=== PATIENT | female | born 1945 | race Caucasian/White ===

== ENCOUNTER 2016-03-02 10:05 | Emergency (ER) | payer MEDICARE, MEDICAID ==
[~2016-03-02] VITALS: Ht 162.6 cm; Wt 75.5 kg
[~2016-03-02 10:05] MED LIST: ALEVE220 MG PO; ATORVASTATIN CA40 MG PO; BEXTRA PO; FLEXERIL10 MG PO; HYDRODIURIL25 MG PO; LEVOFLOXACIN500 MG PO; LIPITOR 10MG10 MG PO; LOPRESSOR 550 MG/TAB PO; LOPRESSOR100 MG PO; LOSARTAN POTASS50 MG PO; MECLIZINE25 MG PO; METFORMIN850 MG PO; NITROGLYCERIN0.4 MG SL; NORCO 325 MG-51 TAB PO; OMEPRAZOLE D/R20 MG PO; PAXIL20 MG PO; PREVACID 30MG30 M1 PO; ST. JOSEPH81 M2 PO; SULFAMETH/TRIME1 TA1 PO; ZESTRIL20 MG PO
[2016-03-02] MEDS ORDERED: LIP PO (12:04)
[2016-03-02] MEDS ORDERED: CLOPIDOGREL PO (12:05)
[2016-03-02] MEDS ORDERED: BENADRYL PO (12:05)
[2016-03-02] MEDS ORDERED: HYDROCHLOROTHIA50 M1 PO (12:06)
[2016-03-02] MEDS ORDERED: LOTRISONE 0.05%1 CRE TOP (12:06)
[2016-03-02] MEDS ORDERED: METFOMIN HYDRO850 MG PO (12:07)
[2016-03-02] MEDS ORDERED: ASPIRIN 32325 MG/TAB PO (12:08)
[2016-03-02] MEDS ORDERED: FLEXERIL 1010 MG/TAB PO (12:31)
[2016-03-02] MEDS ORDERED: ANTIVERT PO (12:31)
[2016-03-02 12:42] VITALS: BP 135/71
== END 2016-03-02 12:43 | disposition home or self-care (01) ==
LOC: ED 10:05
DX: R42 Dizziness and giddiness (principal); M54.5 Low back pain; G89.29 Other chronic pain; E87.6 Hypokalemia
CPT/HCPCS: J7030

== ENCOUNTER → 2016-04-29 | Outpatient (CLI) | payer MEDICARE, MEDICAID ==
[~2016-04-29] MED LIST changes: +ANTIVERT PO; +ASPIRIN 32325 MG/TAB PO; +BENADRYL PO; +CLOPIDOGREL PO; +FLEXERIL 1010 MG/TAB PO; +HYDROCHLOROTHIA50 M1 PO; +LIP PO; +LOTRISONE 0.05%1 CRE TOP; +METFOMIN HYDRO850 MG PO
== END ==
LOC: RAD 09:07
DX: M25.511 Pain in right shoulder (principal); S46.811A Strain of other muscles, fascia and tendons at shoulder and upper arm level, right arm, initial encounter

== ENCOUNTER → 2016-09-02 | Outpatient (CLI) | payer MEDICARE, MEDICAID | LOC: LAB 10:49 | DX: E11.9 Type 2 diabetes mellitus without complications (principal); I10 Essential (primary) hypertension; M79.7 Fibromyalgia; I21.3 ST elevation (STEMI) myocardial infarction of unspecified site; R10.9 Unspecified abdominal pain ==

== ENCOUNTER → 2016-09-04 | Outpatient (CLI) | payer MEDICARE, MEDICAID | LOC: RAD 09:30 | DX: R94.8 Abnormal results of function studies of other organs and systems (principal); R10.9 Unspecified abdominal pain; N26.1 Atrophy of kidney (terminal); I70.0 Atherosclerosis of aorta; I77.811 Abdominal aortic ectasia; K44.9 Diaphragmatic hernia without obstruction or gangrene; K56.41 Fecal impaction ==

== ENCOUNTER → 2016-10-15 | Outpatient (CLI) | payer MEDICARE, MEDICAID | LOC: LAB 14:30 | DX: I70.213 Atherosclerosis of native arteries of extremities with intermittent claudication, bilateral legs (principal) ==

== ENCOUNTER → 2016-11-13 | Outpatient (CLI) | payer MEDICARE, MEDICAID | LOC: LAB 09:38 | DX: R53.83 Other fatigue (principal) ==

== ENCOUNTER → 2017-03-05 | Outpatient (CLI) | payer MEDICARE, MEDICAID | LOC: RAD 08:50 | DX: R10.84 Generalized abdominal pain (principal); Z90.49 Acquired absence of other specified parts of digestive tract; K76.0 Fatty (change of) liver, not elsewhere classified; N27.0 Small kidney, unilateral ==

== ENCOUNTER 2017-09-28 22:54 | Emergency (ER) | payer MEDICARE, MEDICAID ==
[~2017-09-28 22:54] MED LIST changes: -LOPRESSOR100 MG PO; +METOPROLOL TAR100 M1 PO
[2017-09-28] MEDS ORDERED: CATAPRES0.2 M1 PO (23:13)
[2017-09-28 23:37] LABS: HEMOGLOBIN 14.5 g/dL (12.5-16.0); MEAN CELL VOLUME 84 fl (78-100); MEAN CORPUSCULAR HEMOGLOBIN 29 pg (27-31); MEAN CORPUSCULAR HGB CONC 35 g/dL (33-37); MEAN PLATELET VOLUME 9.4 fl (7.4-10.4); PLATELET COUNT 260 K/mm3 (130-400); RED BLOOD COUNT 5.01 M/mm3 (4.10-5.30); WHITE BLOOD COUNT 5.1 K/mm3 (4.8-10.8)
[2017-09-28 23:50] LABS: ALBUMIN 3.9 g/dL (3.5-5.0); BUN/CREATININE RATIO 16.7 (6.0-26.0); POTASSIUM 3.9 mmol/L (3.6-5.0); TOTAL BILIRUBIN 0.6 mg/dL (0.2-1.3)
[2017-09-28 23:51] LABS: LYMPHOCYTE 17 % (20-51); MONOCYTE 11 % (3-10); NEUTROPHILS 65 % (42-75); OVALOCYTES 1+
[2017-09-29 09:02] VITALS: BP 186/78
== END 2017-09-29 09:16 | disposition home or self-care (01) ==
LOC: ED 22:54
PROVIDERS: Physician Assistant
DX: I16.0 Hypertensive urgency (principal); G43.909 Migraine, unspecified, not intractable, without status migrainosus; E11.9 Type 2 diabetes mellitus without complications; I25.2 Old myocardial infarction; I25.10 Atherosclerotic heart disease of native coronary artery without angina pectoris; M06.9 Rheumatoid arthritis, unspecified; Z79.02 Long term (current) use of antithrombotics/antiplatelets; Z79.82 Long term (current) use of aspirin; Z79.899 Other long term (current) drug therapy; F17.210 Nicotine dependence, cigarettes, uncomplicated
CPT/HCPCS: J1200; J1885; J2405; J3010

== ENCOUNTER 2017-10-02 14:04 | Emergency (ER) | payer MEDICARE, MEDICAID ==
[~2017-10-02] VITALS: Ht 162.6 cm; Wt 76.8 kg
[~2017-10-02 14:04] MED LIST changes: +CATAPRES0.2 M1 PO
[2017-10-02 14:44] LABS: HEMATOCRIT 40.5 % (37.0-47.0); MEAN CELL VOLUME 84 fl (78-100); MEAN CORPUSCULAR HEMOGLOBIN 29 pg (27-31); MEAN CORPUSCULAR HGB CONC 35 g/dL (33-37); MEAN PLATELET VOLUME 9.4 fl (7.4-10.4); PLATELET COUNT 298 K/mm3 (130-400); RED CELL DISTRIBUTION WIDTH 13.3 % (11.5-14.5)
[2017-10-02 14:55] LABS: BUN/CREATININE RATIO 13.5 (6.0-26.0); CALCIUM 9.5 mg/dL (8.4-10.2); POTASSIUM 4.6 mmol/L (3.6-5.0); TOTAL PROTEIN 6.5 g/dL (6.3-8.2)
[2017-10-02 15:08] LABS: TROPONIN-I < 0.03 ng/mL (0.00-0.06)
[2017-10-02 15:10] LABS: LYMPHOCYTE 25 % (20-51); MONOCYTE 12 % (3-10); NEUTROPHILS 57 % (42-75)
[2017-10-02] MEDS ORDERED: LOPRESSOR 225 MG/TAB PO (18:48)
[2017-10-02 18:54] LABS: BUN/CREATININE RATIO 13.3 (6.0-26.0); CALCIUM 8.3 mg/dL (8.4-10.2)
[2017-10-02 19:01] LABS: URINE APPEARANCE CLEAR; URINE BILIRUBIN NEGATIVE (NEGATIVE); URINE BLOOD NEGATIVE (NEGATIVE); URINE COLOR YELLOW; URINE GLUCOSE NEGATIVE (NEGATIVE); URINE KETONE NEGATIVE (NEGATIVE); URINE LEUKOCYTE ESTERASE NEGATIVE (NEGATIVE); URINE NITRATE NEGATIVE (NEGATIVE); URINE PROTEIN(semi-quant) NEGATIVE (NEGATIVE); URINE UROBILINOGEN NORMAL (NORMAL); URINE WBC 0-1 /hpf (0-3)
[2017-10-02 19:30] VITALS: BP 131/66
== END 2017-10-02 19:30 | disposition home or self-care (01) ==
LOC: ED 14:04
PROVIDERS: Nurse Practitioner Family
DX: E86.0 Dehydration (principal); I95.1 Orthostatic hypotension; N17.9 Acute kidney failure, unspecified; Z79.82 Long term (current) use of aspirin; Z79.899 Other long term (current) drug therapy; Z79.02 Long term (current) use of antithrombotics/antiplatelets; Z87.891 Personal history of nicotine dependence; I25.2 Old myocardial infarction; I25.10 Atherosclerotic heart disease of native coronary artery without angina pectoris; I12.9 Hypertensive chronic kidney disease with stage 1 through stage 4 chronic kidney disease, or unspecified chronic kidney disease; E11.22 Type 2 diabetes mellitus with diabetic chronic kidney disease; N18.9 Chronic kidney disease, unspecified; R11.2 Nausea with vomiting, unspecified; R19.7 Diarrhea, unspecified; Z95.5 Presence of coronary angioplasty implant and graft
CPT/HCPCS: J7030

== ENCOUNTER → 2017-11-29 | Outpatient (CLI) | payer MEDICARE, MEDICAID ==
[~2017-11-29] MED LIST changes: +LOPRESSOR 225 MG/TAB PO
[2017-11-29 12:56] LABS: URINE APPEARANCE CLEAR; URINE BILIRUBIN NEGATIVE (NEGATIVE); URINE BLOOD NEGATIVE (NEGATIVE); URINE COLOR YELLOW; URINE GLUCOSE NEGATIVE (NEGATIVE); URINE KETONE NEGATIVE (NEGATIVE); URINE LEUKOCYTE ESTERASE NEGATIVE (NEGATIVE); URINE MUCUS PRESENT (NOT PRESENT); URINE NITRATE NEGATIVE (NEGATIVE); URINE PROTEIN(semi-quant) NEGATIVE (NEGATIVE); URINE UROBILINOGEN NORMAL (NORMAL)
== END ==
LOC: LAB 11:48
PROVIDERS: Family Medicine
DX: N39.0 Urinary tract infection, site not specified (principal)

== ENCOUNTER → 2020-03-12 | Outpatient (CLI) | payer MEDICARE ==
[2020-03-12 14:35] LABS: HEMATOCRIT 43.5 % (37.0-47.0); HEMOGLOBIN 14.6 g/dL (12.5-16.0); MEAN PLATELET VOLUME 9.3 fl (7.4-10.4); RED BLOOD COUNT 5.1 M/mm3 (4.10-5.30); RED CELL DISTRIBUTION WIDTH 12.3 % (11.5-14.5); WHITE BLOOD COUNT 5.2 K/mm3 (4.8-10.8)
[2020-03-12 14:39] LABS: ALBUMIN 3.9 g/dL (3.4-4.8); POTASSIUM 4.8 mmol/L (3.5-5.1)
[2020-03-12 14:40] LABS: CALCIUM 9.2 mg/dL (8.3-10.5)
[2020-03-12 14:42] LABS: TOTAL PROTEIN 6.3 g/dL (6.2-8.1)
[2020-03-12 14:44] LABS: TOTAL BILIRUBIN 0.5 mg/dL (0.2-1.2)
[2020-03-12 14:55] LABS: URINE APPEARANCE CLEAR; URINE BILIRUBIN NEGATIVE (NEGATIVE); URINE BLOOD NEGATIVE (NEGATIVE); URINE COLOR YELLOW; URINE GLUCOSE NEGATIVE (NEGATIVE); URINE KETONE NEGATIVE (NEGATIVE); URINE LEUKOCYTE ESTERASE NEGATIVE (NEGATIVE); URINE NITRATE NEGATIVE (NEGATIVE); URINE PROTEIN(semi-quant) TRACE mg/dL (NEGATIVE); URINE UROBILINOGEN NORMAL (NORMAL); URINE WBC 0-1 /hpf (0-3)
== END ==
LOC: LAB 13:56
PROVIDERS: Family Medicine
DX: E11.22 Type 2 diabetes mellitus with diabetic chronic kidney disease (principal); I21.9 Acute myocardial infarction, unspecified; I12.9 Hypertensive chronic kidney disease with stage 1 through stage 4 chronic kidney disease, or unspecified chronic kidney disease; N18.2 Chronic kidney disease, stage 2 (mild); R31.29 Other microscopic hematuria

== ENCOUNTER → 2020-03-18 | Outpatient (CLI) | payer MEDICARE | LOC: RAD 11:00 | DX: K76.0 Fatty (change of) liver, not elsewhere classified (principal); N26.1 Atrophy of kidney (terminal); I70.0 Atherosclerosis of aorta; K44.9 Diaphragmatic hernia without obstruction or gangrene; Z90.49 Acquired absence of other specified parts of digestive tract ==

== ENCOUNTER → 2020-05-13 | Outpatient (CLI) | payer MEDICARE ==
[2020-05-13 12:40] LABS: URINE APPEARANCE CLEAR; URINE BILIRUBIN NEGATIVE (NEGATIVE); URINE BLOOD NEGATIVE (NEGATIVE); URINE COLOR YELLOW; URINE GLUCOSE NEGATIVE (NEGATIVE); URINE KETONE NEGATIVE (NEGATIVE); URINE LEUKOCYTE ESTERASE TRACE (NEGATIVE); URINE MUCUS PRESENT (NOT PRESENT); URINE NITRATE NEGATIVE (NEGATIVE); URINE PROTEIN(semi-quant) NEGATIVE (NEGATIVE); URINE UROBILINOGEN NORMAL (NORMAL)
== END ==
LOC: LAB 12:00
PROVIDERS: Family Medicine
DX: R31.29 Other microscopic hematuria (principal)

== ENCOUNTER → 2020-08-08 | Outpatient (CLI) | payer MEDICARE ==
[2020-08-08 11:08] LABS: BASO # 0.08 (0.02-0.10); EOS % 4.5 % (1.0-5.0); HEMATOCRIT 40.1 % (37.0-47.0); HEMOGLOBIN 14.1 g/dL (12.5-16.0); LYMPH# 1.64 (1.50-4.00); MEAN CELL VOLUME 89 fl (78-100); MEAN CORPUSCULAR HEMOGLOBIN 31 pg (27-31); MEAN CORPUSCULAR HGB CONC 35 g/dL (33-37); MEAN PLATELET VOLUME 9.4 fl (7.4-10.4); MONO # 0.71 (0.20-0.80); NEU # 3.91 (1.40-6.50); PLATELET COUNT 311 K/mm3 (130-400); RED BLOOD COUNT 4.53 M/mm3 (4.10-5.30); RED CELL DISTRIBUTION WIDTH 12.2 % (11.5-14.5); WHITE BLOOD COUNT 6.7 K/mm3 (4.8-10.8)
[2020-08-08 11:17] LABS: POTASSIUM 4.1 mmol/L (3.5-5.1)
[2020-08-08 11:18] LABS: CALCIUM 9.4 mg/dL (8.3-10.5)
== END ==
LOC: LAB 10:42
PROVIDERS: Internal Medicine Interventional Cardiology
DX: Z01.812 Encounter for preprocedural laboratory examination (principal)

== ENCOUNTER → 2020-08-19 | Outpatient (CLI) | payer MEDICARE | LOC: LAB 08:55 | DX: I10 Essential (primary) hypertension (principal); I25.10 Atherosclerotic heart disease of native coronary artery without angina pectoris ==

== ENCOUNTER → 2022-04-10 | Outpatient (CLI) | payer MEDICARE ==
[2022-04-10 14:35] LABS: BASO # 0.05 K/mm3 (0.02-0.10); EOS # 0.27 K/mm3 (0.04-0.40); EOS % 3.4 % (1.0-5.0); HEMATOCRIT 44.2 % (37.0-47.0); HEMOGLOBIN 14.9 g/dL (12.5-16.0); LYMPH# 1.83 K/mm3 (1.50-4.00); MEAN CELL VOLUME 91 fl (78-100); MEAN CORPUSCULAR HEMOGLOBIN 31 pg (27-31); MEAN CORPUSCULAR HGB CONC 34 g/dL (33-37); MEAN PLATELET VOLUME 9.2 fl (7.4-10.4); MONO # 0.84 K/mm3 (0.20-0.80); NEU # 4.99 K/mm3 (1.40-6.50); PLATELET COUNT 322 K/mm3 (130-400); RED BLOOD COUNT 4.86 M/mm3 (4.10-5.30); RED CELL DISTRIBUTION WIDTH 12.7 % (11.5-14.5)
[2022-04-10 14:45] LABS: ALBUMIN 4.3 g/dL (3.4-4.8); POTASSIUM 4.2 mmol/L (3.5-5.1)
[2022-04-10 14:46] LABS: CALCIUM 9.6 mg/dL (8.3-10.5)
[2022-04-10 14:47] LABS: TOTAL PROTEIN 6.8 g/dL (6.2-8.1)
[2022-04-10 14:49] LABS: TOTAL BILIRUBIN 0.9 mg/dL (0.2-1.2)
== END ==
LOC: LAB 14:14
PROVIDERS: Nurse Practitioner
DX: Z00.00 Encounter for general adult medical examination without abnormal findings (principal); Z12.39 Encounter for other screening for malignant neoplasm of breast; Z13.820 Encounter for screening for osteoporosis; H65.03 Acute serous otitis media, bilateral; R29.6 Repeated falls; R26.89 Other abnormalities of gait and mobility; R00.2 Palpitations

== ENCOUNTER → 2022-04-24 | Outpatient (CLI) | payer MEDICARE | LOC: RAD 11:15 | DX: G93.89 Other specified disorders of brain (principal); G31.9 Degenerative disease of nervous system, unspecified; R29.6 Repeated falls ==

== ENCOUNTER → 2022-04-29 | Outpatient (CLI) | payer MEDICARE | LOC: MAMMO 10:00 → RAD 10:07 → MAMMO 10:07 | DX: Z12.31 Encounter for screening mammogram for malignant neoplasm of breast (principal); Z13.820 Encounter for screening for osteoporosis; Z78.0 Asymptomatic menopausal state ==

== ENCOUNTER → 2023-05-24 | Outpatient (CLI) | payer MEDICARE ==
[~2023-05-24] MED LIST changes: +ALDACTONE 25MG25 MG PO; +ASPIRIN REGIMEN81 M2 PO; +CARVEDILOL6.25 MG PO; +CLONIDINE HYDR0.1 MG PO; +FUROSEMIDE40 MG PO; +LOSARTAN POTAS100 MG PO
[2023-05-24 15:27] LABS: BASO # 0.05 K/mm3 (0.02-0.10); EOS # 0.27 K/mm3 (0.04-0.40); EOS % 4.3 % (1.0-5.0); HEMATOCRIT 42.7 % (37.0-47.0); HEMOGLOBIN 13.9 g/dL (12.5-16.0); LYMPH# 1.79 K/mm3 (1.50-4.00); MEAN CELL VOLUME 85 fl (78-100); MEAN CORPUSCULAR HEMOGLOBIN 28 pg (27-31); MEAN CORPUSCULAR HGB CONC 33 g/dL (33-37); MEAN PLATELET VOLUME 9.1 fl (7.4-10.4); MONO # 0.65 K/mm3 (0.20-0.80); PLATELET COUNT 340 K/mm3 (130-400); RED BLOOD COUNT 5.01 M/mm3 (4.10-5.30); RED CELL DISTRIBUTION WIDTH 11.9 % (11.5-14.5); WHITE BLOOD COUNT 6.3 K/mm3 (4.8-10.8)
[2023-05-24 15:33] LABS: ALBUMIN 4.1 g/dL (3.4-4.8)
[2023-05-24 15:34] LABS: CALCIUM 9.8 mg/dL (8.3-10.5)
[2023-05-24 15:35] LABS: TOTAL PROTEIN 6.9 g/dL (6.2-8.1)
[2023-05-24 15:37] LABS: TOTAL BILIRUBIN 0.4 mg/dL (0.2-1.2)
== END ==
LOC: LAB 15:07
PROVIDERS: Family Medicine
DX: I10 Essential (primary) hypertension (principal)